=== PATIENT | female | born 1970 | race Caucasian/White ===

== ENCOUNTER → 2022-07-07 | Outpatient (CLI) | payer MEDICARE | LOC: WCC 07:20 | DX: S61.203A Unspecified open wound of left middle finger without damage to nail, initial encounter (principal); S61.201A Unspecified open wound of left index finger without damage to nail, initial encounter; E11.622 Type 2 diabetes mellitus with other skin ulcer; F42.4 Excoriation (skin-picking) disorder; I10 Essential (primary) hypertension; E11.40 Type 2 diabetes mellitus with diabetic neuropathy, unspecified; F41.9 Anxiety disorder, unspecified; E66.9 Obesity, unspecified; X58.XXXA Exposure to other specified factors, initial encounter; Z79.4 Long term (current) use of insulin; Z87.891 Personal history of nicotine dependence ==

== ENCOUNTER → 2022-07-23 | Outpatient (CLI) | payer MEDICARE | LOC: WCC 08:42 | DX: S61.203A Unspecified open wound of left middle finger without damage to nail, initial encounter (principal); S61.209A Unspecified open wound of unspecified finger without damage to nail, initial encounter; E11.622 Type 2 diabetes mellitus with other skin ulcer; F42.4 Excoriation (skin-picking) disorder; I10 Essential (primary) hypertension; E11.40 Type 2 diabetes mellitus with diabetic neuropathy, unspecified; F41.9 Anxiety disorder, unspecified; E66.9 Obesity, unspecified; Z79.4 Long term (current) use of insulin; Z89.021 Acquired absence of right finger(s); Z89.022 Acquired absence of left finger(s) | CPT/HCPCS: 97597 ==

== ENCOUNTER → 2022-08-17 | Outpatient (CLI) | payer MEDICARE | LOC: WCC 08:00 | DX: E11.628 Type 2 diabetes mellitus with other skin complications (principal); S61.401A Unspecified open wound of right hand, initial encounter; S61.402A Unspecified open wound of left hand, initial encounter; E11.40 Type 2 diabetes mellitus with diabetic neuropathy, unspecified; F41.9 Anxiety disorder, unspecified; F42.4 Excoriation (skin-picking) disorder | CPT/HCPCS: G0463 ==